=== PATIENT | male | born 1960 | race American Indian/Alaskan Native ===

== ENCOUNTER 2017-12-19 10:21 | Inpatient (IN) | payer OTHER ==
[2017-12-19 10:36] LABS: Basophils % (Auto) 0.5 % (0.0-1.8); Eosinophils # (Auto) 0.1 K/mm3 (0.0-0.4); Hematocrit 38.7 % (35.5-45.6); Hemoglobin 13.4 gm/dl (11.8-15.2); Lymphocytes # (Auto) 0.9 K/mm3 (1.2-5.4); Lymphocytes % (Auto) 12.3 % (13.4-35.0); Mean Corpuscular HGB Conc 35 % (32-34); Mean Corpuscular Hemoglobin 31 pg (28-32); Mean Corpuscular Volume 88 fl (84-94); Monocytes # (Auto) 0.5 K/mm3 (0.0-0.8); Monocytes % (Auto) 6.4 % (0.0-7.3); Platelet Count 236 K/mm3 (140-440); Red Blood Count 4.37 M/mm3 (3.65-5.03); Red Cell Distribution Width 12.5 % (13.2-15.2)
[2017-12-19 10:46] LABS: INR 0.86 (0.87-1.13)
[2017-12-19 10:47] LABS: Partial Thromboplastin Time 25.8 Sec. (24.2-36.6)
[2017-12-19 10:49] LABS: BUN/Creatinine Ratio 16; Blood Urea Nitrogen 31 mg/dL (9-20); Calcium 9.5 mg/dL (8.4-10.2); Hemolysis Index 4
--- NOTE | 2017-12-19 10:56 | Cat Scan Report ---
FINAL REPORT EXAM: CT HEAD/BRAIN WO CON HISTORY: neuro deficits < 6hrs or sx present upon awakening TECHNIQUE: CT of the head was performed. No intravenous contrast was administered. PRIORS: None. FINDINGS: There is no evidence of intracranial hemorrhage. There is no edema, mass effect or midline shift. There are no abnormal extra-axial fluid collections. The ventricles are appropriate for brain volume. There is no skull fracture seen. The visualized aspects of the sinuses are clear. IMPRESSION: There is no acute intracranial abnormality identified.
[2017-12-19] MEDS ORDERED: NACL 0.9% 1000 ML 1,000 ML IV ONE ×3 (11:01→16:45)
--- NOTE | 2017-12-19 11:57 | Emergency Department Report ---
ED Neuro Deficit HPI - General Chief Complaint: Neuro Symptoms/Deficit Stated Complaint: HYPERGYCEMIA Time Seen by Provider: 12/19/17 11:00 Source: EMS Mode of arrival: Ambulatory Limitations: No Limitations - History of Present Illness Initial Comments: Patient is a 57-year-old male past medical history of type 2 diabetes who presents with difficulty speaking. Patient states that he has not been feeling well for the last couple days however he states that earlier on this morning and an unknown time he was having difficulty saying the words he wants to say. Patient is able to speak however he is having trouble thinking of the words that he wants to say. Patient is alert and oriented 4. Patient takes metformin and Januvia for his hyperglycemia. Patient states that he's never had symptoms like this before patient denies having any headache nausea in neck pain or any fever. He states that his blood sugars are usually in the 200s. Pt is unaware of the exact timing of his symptoms - Related Data Allergies/Adverse Reactions: Allergies Allergy/AdvReac Type Severity Reaction Status Date / Time procaine [From Novocain] Allergy Unknown Verified 12/19/17 10:28 ED Review of Systems ROS: Stated complaint: HYPERGYCEMIA Other details as noted in HPI Constitutional: denies: chills, fever Eyes: denies: eye pain, eye discharge, vision change ENT: denies: ear pain, throat pain Respiratory: denies: cough, shortness of breath, wheezing Cardiovascular: denies: chest pain, palpitations Endocrine: no symptoms reported Gastrointestinal: denies: abdominal pain, nausea, diarrhea Genitourinary: denies: urgency, dysuria Musculoskeletal: denies: back pain, joint swelling, arthralgia Skin: denies: rash, lesions Neurological: as per HPI. denies: headache, weakness, paresthesias Psychiatric: denies: anxiety, depression Hematological/Lymphatic: denies: easy bleeding, easy bruising ED Past Medical Hx - Past Medical History Previous Medical History?: Yes Hx Diabetes: Yes - Surgical History Past Surgical History?: Yes Additional Surgical History: glaucoma surgery nov 04 - Social History Smoking Status: Never Smoker ED Neuro Physical Exam - General Limitations: No Limitations General appearance: alert, in no apparent distress Suspected Stroke: Yes - Head Head exam: Present: atraumatic, normocephalic - Eye Eye exam: Present: normal appearance - ENT ENT exam: Present: mucous membranes moist - Neck Neck exam: Present: normal inspection - Respiratory Respiratory exam: Present: normal lung sounds bilaterally. Absent: respiratory distress - Cardiovascular Cardiovascular Exam: Present: regular rate, normal rhythm. Absent: systolic murmur, diastolic murmur, rubs, gallop - GI/Abdominal GI/Abdominal exam: Present: soft, normal bowel sounds - Rectal Rectal exam: Present: deferred - Extremities Exam Extremities exam: Present: normal inspection - Back Exam Back exam: Present: normal inspection - Neurological Exam Neurological exam: Present: alert, oriented X3 - NIHSS Assessment Interval: Baseline 1a. Level of Consciousness: alert 1b. LOC Questions: answers correctly 1c. LOC Commands: performs tasks correctly 2. Best Gaze: normal 3. Visual: no visual loss 4. Facial Palsy: normal symmetrical movement 5b. Motor Arm Right: no drift 5a. Motor Arm Left: no drift 6a. Motor Leg Left: no drift 6b. Motor Leg Right: no drift 7. Limb Ataxia: absent 8. Sensory: normal 9. Best Language: no aphasia 10. Dysarthria: mild/moderate dysarthria 11. Extinction/Inattention: no abnormality Total Score: 1 Stroke Severity: Minor Stroke - Psychiatric Psychiatric exam: Present: normal affect, normal mood - Skin Skin exam: Present: warm, dry, intact, normal color. Absent: rash ED Course Vital Signs 12/19/17 12/19/17 10:57 11:48 Temperature 98.4 F Pulse Rate 76 Respiratory 16 16 Rate Blood Pressure 166/82 O2 Sat by Pulse 97 100 Oximetry - Reevaluation(s) Reevaluation #1: 12/19/17 12:57 Patient is able to speak in clear tone and sentences but is still having difficulty saying certain words - Consultations Consultation #1: 12/19/17 12:58 Paged out to stroke neurologist electrician control equipment at 10:35AM still no repsonse - Lab Data Result diagrams: 12/19/17 10:31 12/19/17 10:31 Lab Results 12/19/17 12/19/17 12/19/17 Range/Units 10:31 10:31 10:31 WBC 7.5 (4.5-11.0) K/mm3 RBC 4.37 (3.65-5.03) M/mm3 Hgb 13.4 (11.8-15.2) gm/dl Hct 38.7 (35.5-45.6) % MCV 88 (84-94) fl MCH 31 (28-32) pg MCHC 35 H (32-34) % RDW 12.5 L (13.2-15.2) % Plt Count 236 (140-440) K/mm3 Lymph % (Auto) 12.3 L (13.4-35.0) % [place] % (Auto) 6.4 (0.0-7.3) % Eos % (Auto) 1.0 (0.0-4.3) % Baso % (Auto) 0.5 (0.0-1.8) % Lymph # 0.9 L (1.2-5.4) K/mm3 [place] # 0.5 (0.0-0.8) K/mm3 Eos # 0.1 (0.0-0.4) K/mm3 Baso # 0.0 (0.0-0.1) K/mm3 Seg Neutrophils % 79.8 H (40.0-70.0) % Seg Neutrophils # 6.0 (1.8-7.7) K/mm3 PT 12.1 L (12.2-14.9) Sec. INR 0.86 L (0.87-1.13) APTT 25.8 (24.2-36.6) Sec. Thrombin Time (15.1-19.6) Sec. VBG pH (7.320-7.420) Sodium 131 L (137-145) mmol/L Potassium 5.1 H (3.6-5.0) mmol/L Chloride 91.5 L (98-107) mmol/L Carbon Dioxide 26 (22-30) mmol/L Anion Gap 19 mmol/L BUN 31 H (9-20) mg/dL Creatinine 1.9 H (0.8-1.5) mg/dL Estimated GFR 37 ml/min BUN/Creatinine Ratio 16 % Glucose 587 H* (75-100) mg/dL Calcium 9.5 (8.4-10.2) mg/dL Troponin T < 0.010 (0.00-0.029) ng/mL 12/19/17 12/19/17 Range/Units 10:31 10:45 WBC (4.5-11.0) K/mm3 RBC (3.65-5.03) M/mm3 Hgb (11.8-15.2) gm/dl Hct (35.5-45.6) % MCV (84-94) fl MCH (28-32) pg MCHC (32-34) % RDW (13.2-15.2) % Plt Count (140-440) K/mm3 Lymph % (Auto) (13.4-35.0) % [place] % (Auto) (0.0-7.3) % Eos % (Auto) (0.0-4.3) % Baso % (Auto) (0.0-1.8) % Lymph # (1.2-5.4) K/mm3 [place] # (0.0-0.8) K/mm3 Eos # (0.0-0.4) K/mm3 Baso # (0.0-0.1) K/mm3 Seg Neutrophils % (40.0-70.0) % Seg Neutrophils # (1.8-7.7) K/mm3 PT (12.2-14.9) Sec. INR (0.87-1.13) APTT (24.2-36.6) Sec. Thrombin Time 16.6 (15.1-19.6) Sec. VBG pH 7.354 (7.320-7.420) Sodium (137-145) mmol/L Potassium (3.6-5.0) mmol/L Chloride (98-107) mmol/L Carbon Dioxide (22-30) mmol/L Anion Gap mmol/L BUN (9-20) mg/dL Creatinine (0.8-1.5) mg/dL Estimated GFR ml/min BUN/Creatinine Ratio % Glucose (75-100) mg/dL Calcium (8.4-10.2) mg/dL Troponin T (0.00-0.029) ng/mL - EKG Data -: EKG Interpreted by Me 12/19/17 12:59 EKG shows normal sinus rhythm no ST segment elevation no T wave inversion normal axis. - Radiology Data Radiology results: report reviewed, image reviewed CT head: Shows no acute intracranial process - Medical Decision Making Cdx: Ischemic stroke ddx: Hyperglycemia, TIA, hemorragic stroke, medication effect, sabiha's paralysis I will get CT had, IV fluids, IV insulin, stroke neurology consult and I will get patient MRI and admission to the hospital for stroke workup. Patient has a potential stroke and a potential life-threatening condition I will admit him to the hospitalist service. Discussed plan with patient and patient's family they agree with plan. Pt has a NIHSS of 1 - Core Measures AMI Core Measures Followed: No - Thrombolytic Inclusion/Exclusion Thrombolytic Exclusion Criteria: Onset of Symptoms Unknown Critical Care Time: Yes Critical care time in (mins) excluding proc time.: 35 Critical care attestation.: If time is entered above; I have spent that time in minutes in the direct care of this critically ill patient, excluding procedure time. Critical care time spent at patient's bedside 20 minutes Critical care time spent discussing with patient's family 5 minutes Critical care time spent reviewing lab work and old imaging findings 10 minutes Critical care time spent with store sales consultant 0 minutes ED Disposition Clinical Impression: MALAIKA (acute kidney injury), Hyperkalemia CVA (cerebral vascular accident) Qualifiers: CVA mechanism: unspecified Qualified Code(s): I63.9 - Cerebral infarction, unspecified Hyperglycemia due to type 2 diabetes mellitus Qualifiers: Diabetes mellitus educational paraprofessional insulin use: with educational paraprofessional use Qualified Code(s): E11.65 - Type 2 diabetes mellitus with hyperglycemia; Z79.4 - director of maintenance (current ) use of insulin; Z79.4 - [facility] (current) use of insulin; Z79.4 - [facility] (current) use of insulin; Z79.4 - [facility] (current) use of insulin Disposition: OP ADMIT IP TO THIS HOSP Is pt being admited?: Yes Does the pt Need Aspirin: No Condition: Stable Instructions: Diabetes Mellitus Type 2 in Adults (ED)
[2017-12-19] MEDS ORDERED: LOVENOX SUB-Q SCH (14:00)
[2017-12-19 14:12] LABS: Bilirubin,Urine NEG (Negative); Blood,Urine NEG (Negative); Color,Urine Straw (Yellow); Nitrite,Urine NEG (Negative); Urobilinogen,Urine < 2.0 mg/dL (<2.0)
--- NOTE | 2017-12-19 14:22 | XRay Report ---
PORTABLE CHEST: Stroke protocol. An AP portable view of the chest demonstrates a normal cardiac contour considering the limits of this technique. The lungs are clear with no evidence of infiltrate, fluid or failure. IMPRESSION: Normal portable chest.
[2017-12-19] MEDS: LOVENOX SUB-Q SCH (15:28)
--- NOTE | 2017-12-19 16:41 | History and Physical Report ---
History of Present Illness Date of examination: 12/19/17 History of present illness: Patient is a 57-year-old male past medical history of type 2 diabetes who presents with difficulty speaking, generalized weakness, blurred vision. Patient states that he has not been feeling well for the last couple days however his symptom got worse this morning and having trouble thinking of the words that he wants to say. He was out of his diabetic medication for last two weeks. He states that his blood sugars are usually in the 200s. In the ER his BG was 587, Cr 1.9 and k 5.1. He was given 10 units of insulin and 2l of iv fluid. he denies any focal weakness but takes long time to speak a word and speech noted to be slurred also. he denies any fever, chills or cough. denies any chest pain or SOB. His head CT showed no acute abnormalities. He will be admitted for further evaluation and management. Past medical History: HTN, DM type 2 on insulin, HLD, h/p glucoma Past surgical history: s/p b/l cataract surgery Social history: denies smoking/drinking or drugs Family History: significant for DM Review of system: Stated complaint: HYPERGYCEMIA Other details as noted in HPI Constitutional: denies: chills, fever Eyes: denies: eye pain, eye discharge, vision change ENT: denies: ear pain, throat pain Respiratory: denies: cough, shortness of breath, wheezing Cardiovascular: denies: chest pain, palpitations Endocrine: no symptoms reported Gastrointestinal: denies: abdominal pain, nausea, diarrhea Genitourinary: denies: urgency, dysuria Musculoskeletal: denies: back pain, joint swelling, arthralgia Skin: denies: rash, lesions Neurological: as per HPI. denies: headache, weakness, paresthesias Psychiatric: denies: anxiety, depression Hematological/Lymphatic: denies: easy bleeding, easy bruising Medications and Allergies Allergies Allergy/AdvReac Type Severity Reaction Status Date / Time procaine [From Novocain] Allergy Unknown Verified 12/19/17 10:28 Home Medications Medication Instructions Recorded Confirmed Last Taken Type FLUoxetine HCL [PROzac] 40 mg PO QDAY 12/19/17 12/19/17 Unknown History Insulin Detemir [Levemir] 50 units SUB-Q QHS 12/19/17 12/19/17 Unknown History Liraglutide [Victoza 2-Nelson] 1.8 mg SQ QDAY 12/19/17 12/19/17 Unknown History Metformin HCl 1,000 mg PO BID 12/19/17 12/19/17 Unknown History Rosuvastatin Calcium [Crestor] 40 mg PO DAILY 12/19/17 12/19/17 Unknown History Active Meds: Active Medications Enoxaparin Sodium (Lovenox) 40 mg SUB-Q Q24H MARIUM Last Admin: 12/19/17 15:28 Dose: 40 mg Exam - Physical Exam Narrative exam: - General Limitations: No Limitations General appearance: alert, in no apparent distress Suspected Stroke: Yes - Head Head exam: Present: atraumatic, normocephalic - Eye Eye exam: Present: normal appearance - ENT ENT exam: Present: mucous membranes moist - Neck Neck exam: Present: normal inspection - Respiratory Respiratory exam: Present: normal lung sounds bilaterally. Absent: respiratory distress - Cardiovascular Cardiovascular Exam: Present: regular rate, normal rhythm. Absent: systolic murmur, diastolic murmur, rubs, gallop - GI/Abdominal GI/Abdominal exam: Present: soft, normal bowel sounds - Rectal Rectal exam: Present: deferred - Extremities Exam Extremities exam: Present: normal inspection - Back Exam Back exam: Present: normal inspection - Neurological Exam Neurological exam: Present: alert, oriented X3 - Constitutional Vitals: Temp Pulse Resp BP Pulse Ox 98.4 F 78 21 157/80 97 12/19/17 10:57 12/19/17 15:00 12/19/17 15:00 12/19/17 15:00 12/19/17 15:00 Results - Labs CBC & Chem 7: 12/20/17 04:43 12/22/17 05:48 Labs: Abnormal lab results 12/19/17 12/19/17 12/19/17 Range/Units 10:31 10:31 10:31 MCHC 35 H (32-34) % RDW 12.5 L (13.2-15.2) % Lymph % (Auto) 12.3 L (13.4-35.0) % Lymph # 0.9 L (1.2-5.4) K/mm3 Seg Neutrophils % 79.8 H (40.0-70.0) % PT 12.1 L (12.2-14.9) Sec. INR 0.86 L (0.87-1.13) Sodium 131 L (137-145) mmol/L Potassium 5.1 H (3.6-5.0) mmol/L Chloride 91.5 L (98-107) mmol/L BUN 31 H (9-20) mg/dL Creatinine 1.9 H (0.8-1.5) mg/dL Glucose 587 H* (75-100) mg/dL POC Glucose (70-105) 12/19/17 Range/Units 13:46 MCHC (32-34) % RDW (13.2-15.2) % Lymph % (Auto) (13.4-35.0) % Lymph # (1.2-5.4) K/mm3 Seg Neutrophils % (40.0-70.0) % PT (12.2-14.9) Sec. INR (0.87-1.13) Sodium (137-145) mmol/L Potassium (3.6-5.0) mmol/L Chloride (98-107) mmol/L BUN (9-20) mg/dL Creatinine (0.8-1.5) mg/dL Glucose (75-100) mg/dL POC Glucose 381 H (70-105) Assessment and Plan Uncontrolled DM type 2 with hyperglycemia Stroke like symptom, need to r/o acute CVA, but likely due to hyperglycemia MALAIKA, cannot r/o underlying CKD h/o glucoma HLD, HTN - We will admit the patient to remote telemetry - We'll place on aspirin and statin, will consult neurology if MRI positive for acute infract - CT scan of the head obtained in the ER and shows no intracranial abnormality - We will get MRI of the head, if positive then will get carotid Doppler, 2-D echocardiogram - We will also get hemoglobin A1c level and fasting lipid panel - Allow permissive hypertension, will hold BP meds if patient is taking any at home - We'll place on GI prophylaxis to avoid stress ulcer - Place on DVT prophylaxis - Consult PTOT and speech therapist - Keep the patient nothing by mouth for now - IV hydration with normal saline, - monitor blood glucose and place on sliding scale of insulin, as patient will be nothing by mouth - Further management will be based on pending lab results and imaging studies Radiological data: EKG shows normal sinus rhythm no ST segment elevation no T wave inversion normal axis. CT head: Shows no acute intracranial process
[2017-12-19 17:25] LABS: Chol/HDL Ratio 4.36 %
[2017-12-19] MEDS ORDERED: ZOFRAN ONE (17:33)
[2017-12-19] MEDS ORDERED: ZOFRAN IV ONE (17:39)
--- NOTE | 2017-12-19 18:24 | Magnetic Resonance Report ---
FINAL REPORT EXAM: MR BRAIN WO CON HISTORY: possible cva TECHNIQUE: MRI brain without contrast PRIORS: None. FINDINGS: There is normal signal throughout the brain parenchyma. No evidence for brain edema pattern or mass effect. Ventricles and sulci are within normal limits. No evidence for acute intra-axial or extra-axial hemorrhage. No evidence for acute restriction on diffusion-weighted study. Brainstem and posterior fossa structures are unremarkable. IMPRESSION: Negative. No focal abnormality identified
[2017-12-19] MEDS ORDERED: D50W (25GM) Syringe IV PRN (19:07)
[2017-12-19] MEDS: ASPIRIN PO SCH (19:20)
[2017-12-19] MEDS: ZOFRAN IV PRN ×2 (19:30→22:43)
[2017-12-19] MEDS ORDERED: D5NS 1,000 ML IV SCH (20:00)
[2017-12-19] MEDS ORDERED: LEVEMIR SUB-Q SCH (22:00)
[2017-12-20 05:15] LABS: Basophils % (Auto) 0.3 % (0.0-1.8); Eosinophils % (Auto) 0.1 % (0.0-4.3); Hematocrit 36.5 % (35.5-45.6); Hemoglobin 12.7 gm/dl (11.8-15.2); Lymphocytes # (Auto) 0.9 K/mm3 (1.2-5.4); Lymphocytes % (Auto) 8.2 % (13.4-35.0); Mean Corpuscular HGB Conc 35 % (32-34); Mean Corpuscular Hemoglobin 31 pg (28-32); Mean Corpuscular Volume 89 fl (84-94); Monocytes # (Auto) 0.6 K/mm3 (0.0-0.8); Monocytes % (Auto) 5.6 % (0.0-7.3); Platelet Count 252 K/mm3 (140-440); Red Blood Count 4.12 M/mm3 (3.65-5.03); Red Cell Distribution Width 12.9 % (13.2-15.2)
[2017-12-20 05:31] LABS: Alanine Aminotransferase 15 units/L (7-56); Albumin 3.7 g/dL (3.9-5)
[2017-12-20 05:31] LABS: Calcium 9.4 mg/dL (8.4-10.2)
[2017-12-20 05:35] LABS: Bilirubin,Direct < 0.2 mg/dL (0-0.2)
[2017-12-20] MEDS: ZOFRAN IV PRN ×2 (06:40→18:27)
[2017-12-20] MEDS ORDERED: APRESOLINE IV ONE (06:44)
[2017-12-20] MEDS ORDERED: TYLENOL PO ONE (06:50)
[2017-12-20] MEDS ORDERED: TYLENOL ONE (06:54)
--- NOTE | 2017-12-20 09:44 | Ultrasound Report ---
Renal ultrasound: Chronic renal disease. The right renal length is 10.5 cm. The kidneys are echogenic but no evidence of calculus, obstructive uropathy nor mass. The left kidney is 10.2 cm in length with similar findings except for a 14 mm circumscribed hypodensity most likely representing a cyst. Imaging of the urinary bladder is grossly normal. Impressions: Mild increased renal echogenicity consistent with medical renal disease.
[2017-12-20] MEDS ORDERED: NON-FORMULARY (Rosuvastatin Calcium [Crestor] 40 MG) PO SCH (10:00)
[2017-12-20] MEDS ORDERED: NON-FORMULARY (Fluoxetine Hcl [Prozac] 40 MG) PO SCH (10:00)
[2017-12-20] MEDS ORDERED: NON-FORMULARY (Liraglutide [Victoza 2-Pak] 1.8 MG) SQ SCH (10:00)
[2017-12-20] MEDS: ASPIRIN PO SCH (11:10)
[2017-12-20] MEDS ORDERED: Fluarix Quad 2017-2018(36 MOS+ IM ONE (12:00)
[2017-12-20] MEDS ORDERED: PNEUMOVAX 23 IM ONE (12:00)
[2017-12-20] MEDS: PROzac PO SCH (13:45)
[2017-12-20] MEDS: LOVENOX SUB-Q SCH (14:00)
--- NOTE | 2017-12-20 15:26 | Progress Note ---
Assessment and Plan Uncontrolled DM type 2 with hyperglycemia Stroke like symptom, r/o acute CVA, symptoms likely due to hyperglycemia MALAIKA, cannot r/o underlying CKD h/o glucoma HLD - Monitor patient at remote telemetry - cont aspirin and statin, MRI negative for acute infract - CT scan of the head obtained in the ER and shows no intracranial abnormality - hemoglobin A1c 10.9 - place on ADA diet - start on long acting insulin, cont SSI - IV hydration with normal saline, - Further adjustment of insulin depending on serum BG - renal US showed medical renal disease - cont GI and DVT prophylaxis Radiological data: EKG shows normal sinus rhythm no ST segment elevation no T wave inversion normal axis. CT head: Shows no acute intracranial process MRI head - no acute CVA Subjective Date of service: 12/20/17 Interval history: Pt seen and examined feeling lot better today denies any focal weakness tolerating diet Objective - Exam Narrative Exam: - General Limitations: No Limitations General appearance: alert, in no apparent distress Suspected Stroke: Yes - Head Head exam: Present: atraumatic, normocephalic - Eye Eye exam: Present: normal appearance - ENT ENT exam: Present: mucous membranes moist - Neck Neck exam: Present: normal inspection - Respiratory Respiratory exam: Present: normal lung sounds bilaterally. Absent: respiratory distress - Cardiovascular Cardiovascular Exam: Present: regular rate, normal rhythm. Absent: systolic murmur, diastolic murmur, rubs, gallop - GI/Abdominal GI/Abdominal exam: Present: soft, normal bowel sounds - Rectal Rectal exam: Present: deferred - Extremities Exam Extremities exam: Present: normal inspection - Back Exam Back exam: Present: normal inspection - Neurological Exam Neurological exam: Present: alert, oriented X3 - Constitutional Vitals: Vital Signs - 12hr 12/20/17 12/20/17 12/20/17 04:40 04:52 05:00 Temperature 98.5 F Pulse Rate 78 79 Respiratory 16 11 L Rate Blood Pressure 157/84 201/89 O2 Sat by Pulse 97 Oximetry 12/20/17 12/20/17 12/20/17 05:30 06:00 06:30 Temperature Pulse Rate 85 88 79 Respiratory 16 11 L 21 Rate Blood Pressure 191/105 181/112 181/112 O2 Sat by Pulse 98 97 Oximetry 12/20/17 12/20/17 12/20/17 06:50 07:00 07:50 Temperature Pulse Rate 83 79 77 Respiratory 14 13 Rate Blood Pressure 201/90 171/78 174/82 O2 Sat by Pulse 96 99 Oximetry 12/20/17 12/20/17 12/20/17 08:00 08:30 09:18 Temperature Pulse Rate 74 85 80 Respiratory 11 L 17 12 Rate Blood Pressure 177/76 172/79 172/79 O2 Sat by Pulse 98 94 98 Oximetry 12/20/17 12/20/17 12/20/17 09:30 10:00 10:30 Temperature Pulse Rate 77 79 80 Respiratory 14 9 L 16 Rate Blood Pressure 172/79 173/84 173/84 O2 Sat by Pulse 94 97 98 Oximetry 12/20/17 12/20/17 11:00 12:31 Temperature Pulse Rate 88 Respiratory 19 Rate Blood Pressure 164/78 164/78 O2 Sat by Pulse 96 97 Oximetry - Labs CBC & Chem 7: 12/20/17 04:43 12/20/17 04:57 Labs: Abnormal lab results 12/19/17 12/19/17 12/19/17 Range/Units 16:47 16:54 16:54 MCHC (32-34) % RDW (13.2-15.2) % Lymph % (Auto) (13.4-35.0) % Lymph # (1.2-5.4) K/mm3 Seg Neutrophils % (40.0-70.0) % Seg Neutrophils # (1.8-7.7) K/mm3 Chloride (98-107) mmol/L Carbon Dioxide (22-30) mmol/L BUN (9-20) mg/dL Creatinine (0.8-1.5) mg/dL Glucose (75-100) mg/dL POC Glucose 476 H (70-105) Hemoglobin A1c 10.9 H (4-6) % Albumin (3.9-5) g/dL Triglycerides 282 H (2-149) mg/dL LDL Cholesterol Direct 45 L (50-130) mg/dL HDL Cholesterol 30 L (40-59) mg/dL 12/19/17 12/19/17 12/20/17 Range/Units 18:32 20:41 01:46 MCHC (32-34) % RDW (13.2-15.2) % Lymph % (Auto) (13.4-35.0) % Lymph # (1.2-5.4) K/mm3 Seg Neutrophils % (40.0-70.0) % Seg Neutrophils # (1.8-7.7) K/mm3 Chloride (98-107) mmol/L Carbon Dioxide (22-30) mmol/L BUN (9-20) mg/dL Creatinine (0.8-1.5) mg/dL Glucose (75-100) mg/dL POC Glucose 420 H 376 H 329 H (70-105) Hemoglobin A1c (4-6) % Albumin (3.9-5) g/dL Triglycerides (2-149) mg/dL LDL Cholesterol Direct (50-130) mg/dL HDL Cholesterol (40-59) mg/dL 12/20/17 12/20/17 12/20/17 Range/Units 04:43 04:43 04:57 MCHC 35 H (32-34) % RDW 12.9 L (13.2-15.2) % Lymph % (Auto) 8.2 L (13.4-35.0) % Lymph # 0.9 L (1.2-5.4) K/mm3 Seg Neutrophils % 85.8 H (40.0-70.0) % Seg Neutrophils # 9.0 H (1.8-7.7) K/mm3 Chloride 96.8 L (98-107) mmol/L Carbon Dioxide 21 L (22-30) mmol/L BUN 27 H (9-20) mg/dL Creatinine 2.0 H (0.8-1.5) mg/dL Glucose 310 H (75-100) mg/dL POC Glucose (70-105) Hemoglobin A1c (4-6) % Albumin 3.7 L (3.9-5) g/dL Triglycerides (2-149) mg/dL LDL Cholesterol Direct (50-130) mg/dL HDL Cholesterol (40-59) mg/dL 12/20/17 12/20/17 Range/Units 06:37 10:31 MCHC (32-34) % RDW (13.2-15.2) % Lymph % (Auto) (13.4-35.0) % Lymph # (1.2-5.4) K/mm3 Seg Neutrophils % (40.0-70.0) % Seg Neutrophils # (1.8-7.7) K/mm3 Chloride (98-107) mmol/L Carbon Dioxide (22-30) mmol/L BUN (9-20) mg/dL Creatinine (0.8-1.5) mg/dL Glucose (75-100) mg/dL POC Glucose 292 H 254 H (70-105) Hemoglobin A1c (4-6) % Albumin (3.9-5) g/dL Triglycerides (2-149) mg/dL LDL Cholesterol Direct (50-130) mg/dL HDL Cholesterol (40-59) mg/dL
[2017-12-20] MEDS ORDERED: LEVEMIR SUB-Q SCH (22:00)
[2017-12-20] MEDS: TYLENOL PO PRN (23:24)
[2017-12-21] MEDS: NACL 0.9% 1000 ML 1,000 ML IV SCH ×2 (05:35→15:22)
[2017-12-21] MEDS: ZOFRAN IV PRN (08:11)
[2017-12-21] MEDS ORDERED: PROTONIX PO ONE (09:16)
[2017-12-21] MEDS: TYLENOL PO PRN (09:56)
[2017-12-21] MEDS: PROzac PO SCH (09:57)
[2017-12-21] MEDS: ASPIRIN PO SCH (09:57)
[2017-12-21] MEDS: PROTONIX PO SCH (09:58)
[2017-12-21] MEDS ORDERED: Fluarix Quad 2017-2018(36 MOS+ IM ONE (12:00)
[2017-12-21] MEDS ORDERED: PNEUMOVAX 23 IM ONE (13:45)
[2017-12-21] MEDS: LOVENOX SUB-Q SCH (17:12)
--- NOTE | 2017-12-21 17:19 | Progress Note ---
Assessment and Plan Uncontrolled DM type 2 with hyperglycemia Stroke like symptom, r/o acute CVA, symptoms likely due to hyperglycemia MALAIKA, on underlying CKD: vasomotor nephropathy h/o glucoma HLD and HTN - Monitor patient at remote telemetry - cont aspirin and statin, MRI negative for acute infract - CT scan of the head obtained in the ER and shows no intracranial abnormality - hemoglobin A1c 10.9 - place on ADA diet - start on long acting insulin, cont SSI - IV hydration with normal saline, - Further adjustment of insulin depending on serum BG - renal US showed medical renal disease - will monitor BP, likely will place on amlodipine - cont GI and DVT prophylaxis Radiological data: EKG shows normal sinus rhythm no ST segment elevation no T wave inversion normal axis. CT head: Shows no acute intracranial process MRI head - no acute CVA Subjective Date of service: 12/21/17 Interval history: Pt seen and examined feeling much better denies any focal weakness tolerating diet, BG >300 Objective - Exam Narrative Exam: - General Limitations: No Limitations General appearance: alert, in no apparent distress Suspected Stroke: Yes - Head Head exam: Present: atraumatic, normocephalic - Eye Eye exam: Present: normal appearance - ENT ENT exam: Present: mucous membranes moist - Neck Neck exam: Present: normal inspection - Respiratory Respiratory exam: Present: normal lung sounds bilaterally. Absent: respiratory distress - Cardiovascular Cardiovascular Exam: Present: regular rate, normal rhythm. Absent: systolic murmur, diastolic murmur, rubs, gallop - GI/Abdominal GI/Abdominal exam: Present: soft, normal bowel sounds - Rectal Rectal exam: Present: deferred - Extremities Exam Extremities exam: Present: normal inspection - Back Exam Back exam: Present: normal inspection - Neurological Exam Neurological exam: Present: alert, oriented X3 - Constitutional Vitals: Vital Signs - 12hr 12/21/17 12/21/17 12/21/17 07:00 08:43 09:56 Temperature 98.1 F Pulse Rate 80 65 Respiratory 18 20 Rate Respiratory Rate [Head] Blood Pressure 183/82 O2 Sat by Pulse 98 Oximetry 12/21/17 12/21/17 12/21/17 10:00 10:56 12:48 Temperature Pulse Rate 62 Respiratory 18 20 Rate Respiratory 20 Rate [Head] Blood Pressure 163/74 O2 Sat by Pulse 98 99 Oximetry 12/21/17 12/21/17 15:00 16:26 Temperature Pulse Rate 78 Respiratory Rate Respiratory Rate [Head] Blood Pressure O2 Sat by Pulse 99 Oximetry - Labs CBC & Chem 7: 12/20/17 04:43 12/22/17 05:48 Labs: Abnormal lab results 12/20/17 12/20/17 12/21/17 Range/Units 16:56 21:13 02:29 POC Glucose 343 H 311 H 242 H (70-105) 12/21/17 12/21/17 12/21/17 Range/Units 05:29 08:49 11:46 POC Glucose 208 H 213 H 302 H (70-105)
[2017-12-21] MEDS ORDERED: LEVEMIR SUB-Q SCH (22:00)
[2017-12-22] MEDS: NACL 0.9% 1000 ML 1,000 ML IV SCH (06:33)
[2017-12-22 07:13] LABS: Calcium 8.4 mg/dL (8.4-10.2)
[2017-12-22] MEDS ORDERED: K-DUR PO NR (09:30)
[2017-12-22] MEDS: ASPIRIN PO SCH (10:49)
[2017-12-22] MEDS: HEPARIN SUB-Q SCH ×2 (10:50→22:18)
[2017-12-22] MEDS: PROTONIX PO SCH (10:50)
[2017-12-22] MEDS: PROzac PO SCH (10:52)
[2017-12-22] MEDS: TYLENOL PO PRN (11:20)
--- NOTE | 2017-12-22 15:25 | Discharge Summary ---
Providers - Providers Date of Admission: 12/19/17 13:19 Date of discharge: 12/23/17 Attending physician: ALBIN KUO 12/19/17 16:47 Physical Therapy Evaluation and Treat [CONS] Routine Comment: Reason For Exam: stroke Primary care physician: ESTRADA SPRINGER Hospitalization Condition: Stable Hospital course: Discharge Diagnosis: Uncontrolled DM type 2 with hyperglycemia Stroke like symptom, r/o acute CVA, symptoms likely due to hyperglycemia MALAIKA, on underlying CKD: vasomotor nephropathy h/o glucoma HLD and HTN - Monitor patient at remote telemetry - cont aspirin and statin, MRI negative for acute infract - CT scan of the head obtained in the ER and shows no intracranial abnormality - hemoglobin A1c 10.9 - place on ADA diet - start on long acting insulin, cont SSI - IV hydration with normal saline, - Further adjustment of insulin depending on serum BG - renal US showed medical renal disease - will monitor BP, likely will place on amlodipine - cont GI and DVT prophylaxis Radiological data: EKG shows normal sinus rhythm no ST segment elevation no T wave inversion normal axis. CT head: Shows no acute intracranial process MRI head - no acute CVA Disposition: [id number] HOME UNDER HOME [facility] Time spent for discharge: 32 minutes Core Measure Documentation - Palliative Care Palliative Care/ Comfort Measures: Not Applicable - Core Measures Any of the following diagnoses?: none Exam - Physical Exam Narrative exam: - General Limitations: No Limitations General appearance: alert, in no apparent distress Suspected Stroke: Yes - Head Head exam: Present: atraumatic, normocephalic - Eye Eye exam: Present: normal appearance - ENT ENT exam: Present: mucous membranes moist - Neck Neck exam: Present: normal inspection - Respiratory Respiratory exam: Present: normal lung sounds bilaterally. Absent: respiratory distress - Cardiovascular Cardiovascular Exam: Present: regular rate, normal rhythm. Absent: systolic murmur, diastolic murmur, rubs, gallop - GI/Abdominal GI/Abdominal exam: Present: soft, normal bowel sounds - Rectal Rectal exam: Present: deferred - Extremities Exam Extremities exam: Present: normal inspection - Back Exam Back exam: Present: normal inspection - Neurological Exam Neurological exam: Present: alert, oriented X3 - Constitutional Vitals: Temp Pulse Resp BP Pulse Ox 98.4 F 67 18 151/80 98 12/22/17 11:41 12/22/17 11:41 12/22/17 11:41 12/22/17 11:41 12/22/17 14:21 Plan Activity: advance as tolerated Weight Bearing Status: Weight Bear as Tolerated Diet: diabetic Follow up with: [facility] [Provider Group] - 7 Days PRIMARY CARE, [Referring] - 3-5 Days Prescriptions: Insulin Detemir [Levemir] 40 units SUB-Q QHS 30 Days units amLODIPine [Norvasc] 10 mg PO QDAY #30 tablet Aspirin EC [Aspirin Enteric Coated TAB] 81 mg PO QDAY #30 tablet. FLUoxetine HCL [PROzac] 40 mg PO QDAY #30 capsule Lisinopril [Zestril TAB] 10 mg PO QDAY #30 tablet Metformin HCl 1,000 mg PO BID #30 tablet Rosuvastatin Calcium [Crestor] 40 mg PO DAILY #30 tablet
[2017-12-22] MEDS: NORVASC PO SCH (15:41)
--- NOTE | 2017-12-22 15:54 | Progress Note ---
Assessment and Plan Uncontrolled DM type 2 with hyperglycemia Stroke like symptom, r/o acute CVA, symptoms likely due to hyperglycemia MALAIKA, on underlying CKD: vasomotor nephropathy h/o glucoma HLD and HTN, uncontrolled - Monitor patient at remote telemetry - cont aspirin and statin, MRI negative for acute infract - CT scan of the head obtained in the ER and shows no intracranial abnormality - hemoglobin A1c 10.9 - placed on ADA diet - start on long acting insulin, cont SSI - d/c Iv fluid today - Further adjustment of insulin to 40 units today as BG still elevated - renal US showed medical renal disease - will monitor BP, will place on amlodipine - cont GI and DVT prophylaxis Radiological data: EKG shows normal sinus rhythm no ST segment elevation no T wave inversion normal axis. CT head: Shows no acute intracranial process MRI head - no acute CVA Subjective Date of service: 12/22/17 Interval history: Pt seen and examined feeling much better denies any focal weakness tolerating diet, BG following lunch >300 BP also noted to be elevated Objective - Constitutional Vitals: Vital Signs - 12hr 12/22/17 12/22/17 12/22/17 04:01 04:21 05:32 Temperature 98.5 F Pulse Rate 61 69 Respiratory 20 20 Rate Blood Pressure 166/78 O2 Sat by Pulse 98 96 Oximetry 12/22/17 12/22/17 12/22/17 11:41 14:21 15:41 Temperature 98.4 F Pulse Rate 56 L 56 L Respiratory 18 Rate Blood Pressure 175/89 175/89 O2 Sat by Pulse 98 98 Oximetry - Labs CBC & Chem 7: 12/20/17 04:43 12/23/17 08:51 Labs: Abnormal lab results 12/21/17 12/21/17 12/22/17 Range/Units 16:27 22:07 05:48 Sodium 134 L (137-145) mmol/L Potassium 3.3 L D (3.6-5.0) mmol/L Chloride 96.0 L (98-107) mmol/L Glucose 181 H (75-100) mg/dL POC Glucose 272 H 294 H (70-105) 12/22/17 12/22/17 12/22/17 Range/Units 06:31 11:49 14:38 Sodium (137-145) mmol/L Potassium (3.6-5.0) mmol/L Chloride (98-107) mmol/L Glucose (75-100) mg/dL POC Glucose 177 H 241 H 326 H (70-105)
[2017-12-22] MEDS ORDERED: LEVEMIR SUB-Q SCH ×2 (22:00)
[2017-12-23] MEDS: ZOFRAN IV PRN (08:47)
[2017-12-23] MEDS ORDERED: ZESTRIL PO SCH (10:00)
[2017-12-23] MEDS: NORVASC PO SCH (11:03)
[2017-12-23] MEDS: PROzac PO SCH (11:03)
[2017-12-23] MEDS: ASPIRIN PO SCH (11:03)
[2017-12-23] MEDS: PROTONIX PO SCH (11:04)
[2017-12-23] MEDS: HEPARIN SUB-Q SCH (11:04)
[2017-12-23] MEDS ORDERED: K-DUR PO ONE ×2 (11:11→14:00)
[2017-12-23 13:03] VITALS: BP 166/84
== END 2017-12-23 15:46 | disposition home or self-care (01) | DRG 637 ==
LOC: ED 10:21 → 4A 13:19
PROVIDERS: ADMIT Internal Medicine; ATTEND Internal Medicine
PROC: 3E0234Z Introduction of Serum, Toxoid and Vaccine into Muscle, Percutaneous Approach (ICD-10-PCS; principal; 2017-12-20)
DX: E11.65 Type 2 diabetes mellitus with hyperglycemia (principal); N17.0 Acute kidney failure with tubular necrosis; E78.5 Hyperlipidemia, unspecified; I12.9 Hypertensive chronic kidney disease with stage 1 through stage 4 chronic kidney disease, or unspecified chronic kidney disease; E11.22 Type 2 diabetes mellitus with diabetic chronic kidney disease; E87.5 Hyperkalemia; Z79.4 Long term (current) use of insulin; Z83.3 Family history of diabetes mellitus; Z23 Encounter for immunization
CPT/HCPCS: 36415; 70450; 70551; 71045; 76770; 80048; 80061; 80074; 81001; 82805; 82962; 83036; 84484; 85025; 85610; 85670; 85730; 90686; 90732; 93005; 93010; 99291; A9270-GY; J0360; J1644; J1650; J1815; J1818; J2405; J7030